=== PATIENT | male | born 1975 | race African-American/Black ===

== ENCOUNTER 2016-06-11 06:01 | Emergency (ER) ==
[2016-06-11] MEDS ORDERED: ASPIRIN PO STA (06:26)
--- NOTE | 2016-06-11 06:29 | EKG Report ---
Test Performed on : 06/11/2016 06:14:23 AM Test Reason : hypertension Blood Pressure : / mmHG Vent. Rate : 095 BPM Atrial Rate : 095 BPM P-R Int : 126 ms QRS Dur : 092 ms QT Int : 352 ms P-R-T Axes : 064 026 041 degrees QTc Int : 442 ms Normal sinus rhythm. Nonspecific ST and T wave abnormality Abnormal ECG When compared with ECG of 26-SEP-2014 07:25, No significant change was found Unconfirmed Result
[2016-06-11 06:40] LABS: MANUAL DIFF NEEDED? NO
[2016-06-11 06:56] LABS: BASO% 0.3 % (0.0-0.8); EOS# 0.19 X1000 (0.0-0.7); EOS% 2.7 % (0.0-10.0); HEMOGLOBIN 15.4 g/dL (14.0-18.0); IMM GRAN# 0.01 X1000 (0.0-0.04); IMM GRAN% 0.1 % (0.0-0.5); LYMPH# 1.56 X1000 (1.2-3.4); LYMPH% 22.1 % (20.5-51.1); MCH 27.3 PG (27-31); MCHC 34.2 g/dL (33-37); MCV 79.6 FL (81-99); MONO# 0.54 X1000 (0.11-0.59); MONO% 7.6 % (1.7-9.3); MPV 8.8 FL (7.4-10.4); NEUT% 67.2 % (42.2-75.2); PLT 241 X1000 (130-400); RBC 5.65 XMIL (4.7-6.1)
--- NOTE | 2016-06-11 06:59 | PROVIDER DOCUMENTATION ---
HPI-General Adult - General Chief Complaint: B/P Problems Stated Complaint: B/P PROB Time Seen by Provider: 06/11/16 06:24 Source: patient Allergies/Adverse Reactions: Patient Allergies Allergy/AdvReac Type Severity Reaction Status Date / Time No Known Allergies Allergy Verified 04/20/16 17:47 Home Medications: Home Medication List Medication Instructions Recorded Confirmed Last Taken Type Amlodipine [Norvasc] 10 mg PO DAILY 12/16/15 04/20/16 04/20/16 06:30 History Amoxicillin 875 mg PO Q8HR #30 tablet 06/11/16 Unknown Rx Meclizine [Antivert] 12.5 mg PO TID #20 tablet 06/11/16 Unknown Rx Tramadol [Ultram] 50 mg PO TID #30 tablet 06/11/16 Unknown Rx - History of Present Illness -Gen Adult Nature of Presenting Problems: feeling dizzi and litgh fair for copple days /no cp or cva sxs,,,pt claim bp up at times Pain Radiation: reports: no radiation Onset/Duration: reports: gradual, 2 days ago Timing: reports: intermittent, changing over time Context/Activities at Onset: reports: light activity Modifying Factors: improves with: movement Associated Symptoms: reports: anxiety, dizziness, sinus congestion/drainage. denies: back/neck pain, chest pain, diaphoresis, fever/chills, muscle aches, swelling/mass in abdomen, weakness, trouble walking Similar Symptoms Previously?: Yes Recently seen or treated by another doctor?: No - Diabetes Related Context Context: denies: low blood sugar, high blood sugar Review of Systems - Adult - REVIEW OF SYSTEMS - ADULT Constitutional: reports: see HPI All Other Systems: Reviewed and Negative Past History - Adult - PAST MEDICAL HISTORY-ADULT Review of Records: reports: Old Records Reviewed, Nursing Assessment Review, Medications Reviewed, Social history reviewed & non-contributory. Major Childhood Illnesses: reports: denies history Cardiovascular: reports: blood clots, CAD, HTN, heart valve problem, hyperlipidemia Respiratory: reports: denies history Gastrointestinal: reports: denies history, GERD Obstetrical/Gynecological: reports: denies history Genitourinary: reports: denies history Musculoskeletal: reports: denies history Neurological: reports: denies history Psychiatric: reports: denies history Endocrine/Immune: reports: denies history Other Conditions: reports: denies history - PRIOR SURGERIES/PROCEDURES Surgical/Procedure History: reports: cholecystectomy, cardiac stent, hernia repair - IMMUNIZATION STATUS Childhood Immunizations: See Nurse Assessment Flu Vaccine: See Nurse Assessment - FAMILY HISTORY Family History: reviewed, not pertinent - SOCIAL HISTORY Smoking: non-smoker Provider spent 3-5 mins advising pt. on dangers of tobacco.: Discussed manners to quit use, and f/u contacts for add'l counseling. Substance Use: none presently/history of abuse Alcohol Use Frequency: 1 or 2 times last year Living Situation: alone Physical Exam-General - PHYSICAL EXAM-ADULT Initial Vital Signs Reviewed: Yes - CONSTITUTIONAL General Appearance: appears well, alert, no apparent distress - EYES Eyes: PERRL/EOMI - HEAD, EARS, NOSE, MOUTH & THROAT HENMT: normocephalic/atraumatic, moist mucous membranes, normal ENT inspection - NECK Neck: non-tender, full range of motion, supple - RESPIRATORY Respiratory: chest non-tender, lungs clear, normal breath sounds, no pleuratic chest pain - CARDIOVASCULAR Cardiovascular: normal peripheral pulses, regular rate, rhythm, no edema - GASTROINTESTINAL (ABDOMEN) Abdominal Exam: normal bowel sounds, non tender, soft, no organomegaly - LYMPHATIC Lymphatic: no adenopathy - MUSCULOSKELETAL Back Exam: normal inspection, no CVA tenderness, no vertebral tenderness, CVA tenderness Extremity: normal range of motion, non-tender, normal gait - SKIN Integumentary: normal color, normal turgor - NEUROLOGIC 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 These instructions are being provided to you so you can have an understanding of how to care for yourself upon discharge. Upon discharge from the Emergency Department, you are responsible for making arrangements for follow-up care by a physician of your choice. Take all prescribed medications as directed. Return to the Emergency Department immediately for any new or worsening symptoms. You may call the Physician Referral phone number at [phone] to obtain a list of Physicians who are taking new patients. Prescriptions: Amoxicillin 875 mg PO Q8HR #30 tablet Meclizine [Antivert] 12.5 mg PO TID #20 tablet Tramadol [Ultram] 50 mg PO TID #30 tablet
[2016-06-11 07:29] LABS: AGAP 13; ALBUMIN 4.6 g/dL (3.5-5.0); ALKALINE PHOSPHATASE 55 U/L (32-122); BUN 13 mg/dL (8-22); CALCIUM 9.2 mg/dL (8.8-10.2); CHLORIDE 102 mmol/L (98-107); COSMO 275; GOT 44 U/L (10-34); GPT 57 U/L (10-44); MAGNESIUM 2.2 mg/dL (1.5-2.7); POTASSIUM 3.6 mmol/L (3.5-5.1); SODIUM 137 mmol/L (136-145); TCO2 22 mmol/L (25-35); TOTAL PROTEIN 7.5 g/dL (6.3-8.3)
[2016-06-11 07:33] LABS: CK PROFILE 469 U/L (24-204)
--- NOTE | 2016-06-11 07:36 | Diag Imaging Result Document ---
PROCEDURE NAME: HEAD W/O CONTRAST - 06/11/2016 CT BRAIN WITHOUT CONTRAST. DOSE REDUCTION PROTOCOL: FINDINGS: No parenchymal hemorrhage. No epidural or subdural hematoma. No subarachnoid hemorrhage. No mass identified on this noncontrasted exam. No hydrocephalus. No sinus opacification although there is prominent mucus in the right sphenoid sinus. IMPRESSION: 1. No hemorrhage. 2. Right sphenoid sinusitis. A preliminary report was given at 7:13 a.m.
[2016-06-11] MEDS ORDERED: NS 500 ML IV ONE (07:38)
--- NOTE | 2016-06-11 08:19 | Diag Imaging Result Document ---
PROCEDURE NAME: CHEST-2 VIEWS - 06/11/2016 FRONTAL AND LATERAL CHEST, TWO VIEWS: COMPARISON: 04/20/2016. FINDINGS: The lungs are well expanded. The heart is not enlarged. The vessels are not distended. No pneumonia. No pleural effusions. No free air beneath the diaphragm. IMPRESSION: No acute abnormality.
[2016-06-11 08:22] VITALS: BP 128/88
[2016-06-11 08:56] LABS: CK-MB 4.59 ng/mL (0.0-5.0)
--- NOTE | 2016-06-11 09:06 | ED EKG INTERP ---
EKG Interpretation - EKG Time of EKG reading by physician:: 06:14 EKG Read and Signed by:: Lito Danielle EKG Interpretation (*Must complete 3 of following elements*): Abnormal Rate: 95 Rhythm: nsr [place]: normal QRS: normal ST Wave: non-specific ST changes Attestation - Scribe Verification/Attestation Scribe:: Kassy Mariscal Acting as Scribe for:: Lito Danielle Scribe documention review:: This chart was documented by a scribe and accurately reflects the service the provider performed and the decisions made by the provider.
== END 2016-06-11 08:21 | disposition home or self-care (01) ==
LOC: P.ED 06:01
DX: J32.9 Chronic sinusitis, unspecified (principal); R42 Dizziness and giddiness; R09.81 Nasal congestion; Z86.718 Personal history of other venous thrombosis and embolism; I25.10 Atherosclerotic heart disease of native coronary artery without angina pectoris; I10 Essential (primary) hypertension; E78.5 Hyperlipidemia, unspecified; K21.9 Gastro-esophageal reflux disease without esophagitis; Z95.5 Presence of coronary angioplasty implant and graft; R94.31 Abnormal electrocardiogram [ECG] [EKG]; Z79.899 Other long term (current) drug therapy
CPT/HCPCS: 70450; 71020; 80053; 82550; 82553; 83735; 83880; 84484; 85025; 85379; 93005; J7040

== ENCOUNTER 2018-06-10 20:55 | Observation (INO) ==
[2018-06-10] MEDS ORDERED: ATIVAN IV ONE (21:33)
[2018-06-10] MEDS ORDERED: M.V.I.-12 10 ML, FOLIC ACID 1 MG, MAGNESIUM SULFATE 1 GM, THIAMINE 100 MG in NS 1,000 ML IV ONE (21:33)
[2018-06-10] MEDS ORDERED: PROTONIX IV ONE (21:41)
[2018-06-10] MEDS ORDERED: SODIUM CHLORIDE 0.9% INJ ONE (21:41)
[2018-06-10] MEDS ORDERED: ASPIRIN PO ONE (21:48)
[2018-06-10 21:54] LABS: BASO# 0.02 X1000 (0.0-0.2); BASO% 0.2 % (0.0-0.8); EOS# 0.05 X1000 (0.0-0.7); EOS% 0.6 % (0.0-10.0); HEMATOCRIT 48.4 % (42.0-52.0); HEMOGLOBIN 16.6 g/dL (14.0-18.0); IMM GRAN# 0.02 X1000 (0.0-0.04); IMM GRAN% 0.2 % (0.0-0.5); LYMPH# 1.35 X1000 (1.2-3.4); LYMPH% 16.3 % (20.5-51.1); MCH 27.6 PG (27-31); MCHC 34.3 g/dL (33-37); MCV 80.5 FL (81-99); MONO# 0.57 X1000 (0.11-0.59); MONO% 6.9 % (1.7-9.3); NEUT# 6.28 X1000 (1.4-6.5); NEUT% 75.8 % (42.2-75.2); PLT 291 X1000 (130-400); RBC 6.01 XMIL (4.7-6.1); RDW 12.1 % (11.5-14.5); WBC 8.29 X1000 (4.8-10.8)
[2018-06-10 22:03] LABS: URINE SOURCE CLEAN CATCH
[2018-06-10 22:15] LABS: AGAP 18; ALB/GLOB RATIO 1.4; ALBUMIN 4.8 g/dL (3.5-5.0); ALKALINE PHOSPHATASE 78 U/L (32-122); BUN 12 mg/dL (8-22); CALCIUM 9.5 mg/dL (8.8-10.2); CHLORIDE 100 mmol/L (98-107); COSMO 279; CREATININE 0.9 mg/dL (0.7-1.2); ESTIMATED GFR > 60; GLUCOSE 94 mg/dL (70-104); GOT 59 U/L (10-34); GPT 69 U/L (10-44); POTASSIUM 3.9 mmol/L (3.5-5.1); SODIUM 140 mmol/L (136-145); TCO2 22 mmol/L (25-35); TOTAL BILIRUBIN 0.27 mg/dL (0.20-1.00); TOTAL PROTEIN 8.2 g/dL (6.3-8.3)
[2018-06-10 22:37] LABS: BILIRUBIN URINE NEGATIVE (NEGATIVE); BLOOD URINE SMALL (NEGATIVE); COLOR YELLOW; GLUCOSE URINE NEGATIVE (NEGATIVE); KETONE URINE NEGATIVE (NEGATIVE); LEUKOCYTES URINE NEGATIVE (NEGATIVE); NITRITE URINE NEGATIVE (NEGATIVE); PROTEIN URINE 50 mg/dL (NEGATIVE); SP GRAVITY URINE 1.016; TURBIDITY URINE CLEAR (CLEAR); UR EPITHELIAL CELLS <10 /HPF (<10); URINE BACTERIA NEGATIVE /HPF; URINE RBC <10 /HPF (<10); URINE WBC <10 /HPF (<10); UROBILINOGEN URINE NORMAL (NORMAL)
[2018-06-10 22:47] LABS: URINE CASTS GRANULAR PRESENT; URINE CRYSTALS NONE SEEN; URINE SMALL ROUND CELLS NONE SEEN; URINE YEAST NONE SEEN
[2018-06-10 23:54] LABS: UR AMPHETAMINES QUAL NONE DETECTED (NONE DETECT); UR BARBITUATES QUAL NONE DETECTED (NONE DETECT); UR BENZODIAZEPIN QUAL NONE DETECTED (NONE DETECT); UR CANNABINOIDS QUAL NONE DETECTED (NONE DETECT); UR COCAINE QUAL NONE DETECTED (NONE DETECT); UR METHADONE QUAL NONE DETECTED (NONE DETECT); UR OPIATES QUAL NONE DETECTED (NONE DETECT); UR OXYCODONE QUAL NONE DETECTED (NONE DETECT); UR PCP QUAL NONE DETECTED (NONE DETECT)
[2018-06-10 23:58] LABS: INR 0.88; PROTIME 12.6 Seconds (11.0-16.0)
--- NOTE | 2018-06-11 01:05 | PROVIDER DOCUMENTATION ---
This chart was entered by Yany Bal Scribe, acting as scribe for Renny Zhao MD. HPI-General Adult - General Chief Complaint: Nose Bleed Stated Complaint: nose bleed Time Seen by Provider: 06/10/18 20:57 Source: patient Allergies/Adverse Reactions: Patient Allergies Allergy/AdvReac Type Severity Reaction Status Date / Time No Known Allergies Allergy Verified 06/10/18 21:16 Home Medications: Home Medication List Medication Instructions Recorded Confirmed Last Taken Type Amlodipine [Norvasc] 10 mg PO QAM 12/16/15 10/30/17 10/30/17 16:00 History Famotidine [Pepcid] 20 mg PO DAILY #20 tab 11/12/17 Unknown Rx Hydrocodone/APAP 7.5 mg/325 mg 1 ea PO Q6H PRN PRN #10 tab 11/12/17 Unknown Rx [[place]-7.5] Ibuprofen [Motrin] 800 mg PO Q8H PRN PRN #20 tab 11/12/17 Unknown Rx - History of Present Illness -Gen Adult Nature of Presenting Problems: 42 yom c/o tingling cp that is mild in er in comparison to earlier today and nosebleed on rt nare that stopped when pressure was applied. pt arrived via ems. pt states he has financial problems and drinks 15 beers/a day. pt has hx of heart problems, htn, and gerd. Location of Pain/Injury: reports: chest Review of Systems - Adult - REVIEW OF SYSTEMS - ADULT Constitutional: reports: no symptoms reported Eyes: reports: no symptoms reported Ears, Nose, Mouth & Throat: reports: see HPI, nose pain (nosbleed rt nare). denies: ear pain, sinus problem, loose teeth Cardiovascular: reports: see HPI, chest pain. denies: orthopnea, palpitations, poor circulation, syncope Respiratory: reports: no symptoms reported Gastrointestinal: reports: no symptoms reported Genitourinary: reports: no symptoms reported Musculoskeletal: reports: no symptoms reported Integumentary: reports: no symptoms reported Neurological: reports: no symptoms reported Psychiatric: reports: no symptoms reported Endocrine: reports: no symptoms reported Hematologic/Lymphatic: reports: no symptoms reported Allergic/Immunologic: reports: no symptoms reported All Other Systems: Reviewed and Negative Past History - Adult - PAST MEDICAL HISTORY-ADULT Review of Records: reports: Old Records Reviewed, Nursing Assessment Review, Medications Reviewed, Social history reviewed & non-contributory. Major Childhood Illnesses: reports: denies history Cardiovascular: reports: blood clots, CAD, HTN, heart valve problem, hyperlipidemia Respiratory: reports: denies history Gastrointestinal: reports: GERD Obstetrical/Gynecological: reports: denies history Genitourinary: reports: denies history Musculoskeletal: reports: denies history Neurological: reports: denies history Psychiatric: reports: denies history Endocrine/Immune: reports: denies history Other Conditions: reports: denies history - PRIOR SURGERIES/PROCEDURES Surgical/Procedure History: reports: cholecystectomy, cardiac stent, hernia repair - IMMUNIZATION STATUS Childhood Immunizations: See Nurse Assessment Flu Vaccine: See Nurse Assessment - FAMILY HISTORY Family History: reviewed, not pertinent - SOCIAL HISTORY Smoking: cigarettes, less than 1 pack/day Provider spent 3-5 mins advising pt. on dangers of tobacco.: Discussed manners to quit use, and f/u contacts for add'l counseling. Substance Use: alcohol Alcohol Use Frequency: every day Physical Exam-General - PHYSICAL EXAM-ADULT Initial Vital Signs Reviewed: Yes - CONSTITUTIONAL General Appearance: alert, no apparent distress, anxious. negative: slow to respond, obtunded, combative - EYES Eyes: PERRL/EOMI - HEAD, EARS, NOSE, MOUTH & THROAT HENMT: normocephalic/atraumatic, moist mucous membranes - NECK Neck: non-tender, full range of motion, supple, normal inspection - RESPIRATORY Respiratory: chest non-tender, lungs clear, normal breath sounds - CARDIOVASCULAR Cardiovascular: normal peripheral pulses, tachycardia. 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, grossly normal, no motor/sensory deficits - PSYCHIATRIC Psych/Mental Status: normal mood/affect, normal thought content, normal thought process, oriented x 3 Progress - PLAN OF CARE/RESULTS Progress/Plan/Lab Results: Vital Signs - 8 hr 06/10/18 21:12 Temperature 98.8 F Pulse Rate 109 H Respiratory Rate 24 Blood Pressure 143/102 O2 Sat by Pulse Oximetry 96 Orders Category Date Time Status CBC WITH ELECTRONIC DIFF [HEME] Stat Lab 06/10/18 21:32 Uncollected CMP [COMPREHENSIVE METABOLIC PANEL] [CHEM] Stat Lab 06/10/18 21:32 Uncollected EKG [EKG] Stat Ther 06/10/18 21:02 Ordered Result Diagrams: 06/10/18 21:22 06/10/18 21:22 - EKG 1 Time of EKG reading by physician:: 21:08 EKG Read and Signed by:: Renny Zhao EKG Interpretation (*Must complete 3 of following elements*): Abnormal Rate: 108 (anterior infarct age undetermined ) Rhythm: ST [place]: normal QRS: normal ID Interval: normal ST Wave: non-specific ST changes Prior EKG Comparison: unchanged from prior 2 Time of EKG reading by physician:: 00:31 EKG Read and Signed by:: Renny Zhao EKG Interpretation (*Must complete 3 of following elements*): Normal Rate: 100 Rhythm: NSR [place]: normal QRS: normal ID Interval: normal Prior EKG Comparison: changes noted - CONSULTS/PCP/HOSPITALIST Notification #1 *Consult/PCP/Hospitalist*: Dr. Luciano Time Discussed: 23:28 Consult Disposition: Admit (Hx, PE and patient care discussed, accepted.) Departure - Departure Date of Disposition Decision: 06/10/18 Time of Disposition Decision: 23:27 DIAGNOSIS: Alcohol withdrawal Qualifiers: Complication of substance-induced condition: uncomplicated Qualified Code(s): F10.230 - Alcohol dependence with withdrawal, uncomplicated Chest pain Qualifiers: Chest pain type: other chest pain Qualified Code(s): R07.89 - Other chest pain; R07.8 - Other chest pain Disposition: ADMITTED INPATIENT 09 Certified Medical Emergency: Emergent Condition: Stable Referrals and Follow-Ups: Rajat King MD [Primary Care Provider] - - Critical Care Note This patient required my direct & personal management of CC.: No Attestation - Physician/ RONA Attestation Patient care was provided by Advanced Practice Provider:: No The physician spent face to face time with patient:: Yes Advanced Practice Provider documentation review:: Supervising physician onsite and consulted in the evaluation and care of this patient. The physician did have a face to face encounter with the patient. This chart was documented by the indicated scribe, (Yany Bal Scribe) and accurately reflects the services I performed and decisions made by me, Renny Horn MD, as attested by the provider's signature.
[2018-06-11 01:42] LABS: CK-MB 3.11 ng/mL (0.0-5.0)
[2018-06-11] MEDS ORDERED: ZOFRAN IV PRN (01:54)
[2018-06-11 02:42] LABS: CK INDEX 1.1 (0.0-2.5); CK-MB 3.86 ng/mL (0.0-5.0)
[2018-06-11] MEDS ORDERED: TYLENOL PO PRN (02:55)
--- NOTE | 2018-06-11 07:36 | HISTORY AND PHYSICAL ---
PRIMARY CARE PROVIDER: Dr. Rajat King. DATE AND TIME: 06/11/2018 at 0030. CHIEF COMPLAINT: Chest pain. HISTORY OF PRESENT ILLNESS: Mr. Ledbetter is a 42-year-old male who presented to the ER this evening with complaints of chest pain as well as a nosebleed. The patient reports that this evening just prior to his arrival he was having a nosebleed. The patient states he does have occasional nosebleeds. The patient states that shortly after his nosebleeds subsiding that he did have an episode of chest pain that lasted for just a few minutes. He reported that the chest pain was in his left chest, was squeezing in nature, and was nonradiating though he did have associated symptoms of some dizziness, lightheadedness and felt like his heart was racing. He denied any headache, visual disturbances, shortness of breath, nausea, vomiting, indigestion or diaphoresis. The patient states that he was sitting down and was at rest at the time the chest pain started. He states that since it has subsided, it has not started back. He did call an ambulance and had them bring him to the ER. According to the ER notes, it was noted that the patient's blood pressure was elevated according to EMS at 170s systolically over the 110s diastolically. He also was tachycardic as well with a heart rate in the 140s. He was given IV labetalol in route and since that time his blood pressure and heart rate have both improved. The patient's nosebleed and his chest pain as well as his symptoms he reported with his chest pain have all subsided at this time. The patient does have a previous history of having a cardiac stent placed at [facility] back in either 2014 or 2015. The patient states that since that time, he has not followed back up with a manual qa tester. He denies any tobacco use though does state that he does drink fairly regularly. The patient states that he usually does drink a couple beers a day though it looked as though in the ER physician's note that they documented that the patient reported to them that he had been having some financial problems and drinks up to 15 beers a day. Upon evaluation in the ER, the patient's initial vital signs were temperature 98.8 degrees, heart rate 109, respirations 24, blood pressure is 143/102, oxygen saturation was 96% on room air. While in the ER, though his CK was a little elevated at 342. His troponins have been negative. There does not appear to be any acute EKG changes at this time. The patient does report he has a history of having a left upper extremity DVT though his D-dimer was negative at this time. He does not have any swelling, erythema, warmth, tenderness or abnormalities noted to bilateral upper or lower extremities. He is denying any shortness of breath. Though given the patient's history we will admit him for further evaluation of his chest pain. REVIEW OF SYSTEMS: A 14 point review of systems was conducted with the patient. All were negative except for pertinent positives mentioned in above HPI. PAST MEDICAL HISTORY: 1. Coronary artery disease status post cardiac stent placement in 2014 or 2015 at [facility]. 2. Hypertension. 3. Hyperlipidemia. 4. Alcohol abuse. 5. History of a left upper extremity DVT. PAST SURGICAL HISTORY: 1. Cholecystectomy. 2. Right inguinal hernia repair. 3. Cardiac stent placement. 4. Dental surgery. SOCIAL HISTORY: The patient denies any tobacco or illicit drug use. He does report that he does drink beer usually on a daily basis. He only told me that he drinks up to a couple beers a day though it was noted in the ER physician's notes that he reportedly had drank up to 15 beers a day. FAMILY HISTORY: Positive for his father having a history of hypertension. Other than this the patient denies any other previous known past family medical history. ALLERGIES: Patient has no known allergies. HOME MEDICATIONS: 1. Aspirin 81 mg p.o. daily. 2. Amlodipine/benazepril 5/10 mg capsule 1 p.o. daily. DIAGNOSTIC DATA/LABORATORY RESULTS: White blood cell count is 8,290, hemoglobin 16.6, hematocrit 48.4, platelet count is 291,000. PT 12.6, INR is 0.88, PTT is 27, D-dimer 0.27. Sodium 140, potassium 3.9, chloride 100, serum bicarb is 22, BUN 12, creatinine 0.9 with a GFR greater than 60. Glucose 94, calcium 9.5, phosphorus 3.5, magnesium 2.2. Liver function tests within normal limits except for AST and ALT are slightly elevated. CK is 342 with a repeat of 309. CK index 1.1 with a repeat of 1. CK MB is 3.86 with a repeat of 3.11. Troponin the initial and repeat at this time have been less than 0.01. Urinalysis was obtained via clean catch, was positive for protein, small amount of blood, though was negative for glucose, ketones, nitrites, leukocytes white blood cells, or bacteria. Urine drug screen was negative. Serum alcohol is 42. EKG did show normal sinus rhythm at a rate of 100 with a QTc of 441. We are awaiting a chest x- ray at this time. PHYSICAL EXAMINATION: VITAL SIGNS: Temperature 97.8 degrees, heart rate 92, respirations 18, blood pressure is 146/83, oxygen saturation is 97% on room air. GENERAL: Mr. Ledbetter is a 42-year-old male who is resting in the ER stretcher. He was in no acute distress. He was awake, alert and able to answer questions appropriately. HEENT: Head is atraumatic, normocephalic. Pupils are equal, round, reactive to light, were 3 mm bilaterally and brisk. Oral mucosa is moist. Oropharynx is clear. NECK: Supple. Trachea midline. No carotid bruits noted upon auscultation bilaterally. CARDIOVASCULAR: Patient has normal S1, S2. No murmurs, gallops, rubs appreciated with a regular rate and rhythm. PULMONARY: Patient has symmetrical chest expansion bilaterally. Lung sounds are clear to auscultation in bilateral full gallo. ABDOMEN: Soft. Nontender, nondistended. Bowel sounds are present in all 4 quadrants. EXTREMITIES: No cyanosis, clubbing, or edema noted. Pulse, motor, and sensory is intact in all extremities. Radial pulses and pedal pulses are 2+ bilaterally. INTEGUMENTARY: The patient's skin color is normal for his race, is dry and intact. NEUROLOGICAL: Patient is alert and oriented x4. He is able to move all extremities. There does not appear to be any focal neurological deficits. ASSESSMENT AND PLAN: 1. Chest pain. For further evaluation of this, we will continue with a series of cardiac enzymes. We will do repeat EKG in the morning. We have also ordered an echocardiogram in the morning as well. The patient since his initial chest pain episode that lasted a few minutes prior to arrival, he has not had any further chest pain since that time. We will continue with daily aspirin as well as his regularly prescribed antihypertensive. We will do frequent vital signs. He will be on cardiac telemetry and we will place a consult with Dr. Hoang with Cardiology and await their evaluation and further recommendations for management. 2. Hypertension. We will continue his amlodipine/benazepril 5/10 mg capsule daily. 3. Epistaxis. The patient's epistaxis has stopped at this time. He has not had any further problems with this since his arrival to the hospital. The patient's blood pressure was noted by the EMS service to be elevated in the 170s systolically. This may be related to his high blood pressure. The patient states that he does occasionally have nosebleeds. We will continue to follow. 4. Alcohol abuse. The patient states that he does have frequent alcohol use. He reports that sometimes this could be daily or every other day up to a couple beers a day. Though it was noted in the ER physician notes that he had reportedly informed them that he would drink up to 15 beers a day. At this time the patient is not showing any alcohol withdrawal symptoms. He denies having any withdrawal type symptoms in the past when he has gone for long periods of time without drinking alcohol. We will continue to monitor him closely for any alcohol withdrawal symptoms. The patient has been placed on the medical floor with telemetry. He will have vital signs q.4 hours. We will do strict intake and output. We will repeat a BMP, magnesium and cardiac enzymes later on this morning. Further orders and recommendations pending hospital course, diagnostic studies, and physician evaluation. Dictated by MARIA LUZ Campbell for David Luciano MD I have performed a face to face diagnostic evaluation. Labs/ Xrays- reviewed. Exam- Chest - clear, CV- regular. A/P- Chest pain- Admit ,cardiac work up, Cardiology consult. Dr. Luciano cc: David Luciano MD [facility]
[2018-06-11 10:01] LABS: AGAP 13; BUN 12 mg/dL (8-22); CALCIUM 9.6 mg/dL (8.8-10.2); CHLORIDE 101 mmol/L (98-107); COSMO 278; ESTIMATED GFR > 60; GLUCOSE 107 mg/dL (70-104); MAGNESIUM 2.3 mg/dL (1.5-2.7); POTASSIUM 3.6 mmol/L (3.5-5.1); SODIUM 139 mmol/L (136-145); TCO2 25 mmol/L (25-35)
[2018-06-11] MEDS: ASPIRIN PO SCH (10:03)
[2018-06-11] MEDS: LOTREL 5/10 MG PO SCH (10:03)
[2018-06-11 10:36] LABS: CK PROFILE 332 U/L (24-204)
[2018-06-11 10:53] LABS: CK INDEX 0.9 (0.0-2.5); CK-MB 2.83 ng/mL (0.0-5.0)
--- NOTE | 2018-06-11 11:57 | Diag Imaging Result Doc PS360 ---
EXAM: CHEST-PORTABLE INDICATION: Chest Pain TECHNIQUE: One view COMPARISON: 06/11/2016 FINDINGS: The lungs are grossly clear. There is no discrete pleural fluid collection or pneumothorax. The cardiomediastinal silhouette and central vasculature are grossly unremarkable. IMPRESSION: No evidence of acute pathology by plain radiograph. Electronically signed by Marko Bal 06/11/2018 11:55 AM
[2018-06-11 17:44] LABS: CK INDEX 0.8 (0.0-2.5); CK-MB 2.52 ng/mL (0.0-5.0)
--- NOTE | 2018-06-11 18:42 | CARDIOLOGY CONSULTATION ---
DATE: 06/11/2018 CONSULTATION REQUESTED BY: Hospitalist Service. REASON: Chest pain. HISTORY: Mr. Ledbetter is a 42-year-old black gentleman who was at work. He works at the [employer] in the [place] area. At about 8:30 at night he started noticing nose bleed. This is not a new occurrence to him because he has been to the ER on several occasions throughout the course of the years with epistaxis. He has to take aspirin because of history of a stent. At any rate, while he was at work he tried to stop the bleeding. However it would not stop and then he started feeling discomfort in the chest of moderate severity lasted about 10 to 15 minutes. There was some question of radiation to the left shoulder. Eventually the chest pain gradually subsided and the nosebleed practically stopped by the time the ambulance got to pick him up and brought him to the ER. In the ER they immediately picked up on the chest pain and they started all the usual cardiac workup including 3 sets of troponins which have been negative. First one at 9 p.m., last one at 9 a.m. this morning. CPKs were slightly elevated which is not unexpected given the fact that this patient does physical work. The patient basically has not had any more complaints since his checking into the ER which was about 9:30 p.m. last night. His electrocardiogram has come back normal. The 1st EKG was done at 9:08 p.m. and it basically does not show any major abnormality. The other 2 EKGs the last 1 done this morning at 6:17 in the morning shows no abnormalities. His chest x-ray showed no pathology. PAST HISTORY: Positive for coronary heart disease. Back in 2014 he presented with an acute coronary syndrome and he underwent heart catheterization back on 09/07/2014. A moderate to severe stenosis of the LAD was identified and he was referred to [place]. They performed stenting to LAD on 09/08/14. Subsequently, he developed some chest pain after the stent and he had to be taken back to the catheterization lab and angiography showed that the stent was patent with sluggish flow in distal LAD. He has not had any further problems since then. He does have history of hypertension, hyperlipidemia. There is a question of upper extremity deep venous thrombosis. SURGICAL HISTORY: Positive for inguinal hernia repair and gallbladder surgery. SOCIAL HISTORY: He lives with a girlfriend. He has 2 children ages 22 and 9. He has 1 grand child. He has been working at [employer] for a while. FAMILY HISTORY: Father has hypertension. He has 2 brothers who are healthy. Mother is healthy. He follows with Dr. Rajat King and the last time he saw him has been quite a while. HOME MEDICATIONS: Include amlodipine, benazepril and aspirin. REVIEW OF SYSTEMS: Basically he has no complaints. He is working 2nd shift from 6 p.m. until 6 a.m. at [employer]. He has no limitations to perform his usual activities. Multiple systems were checked nothing positive. PHYSICAL EXAMINATION: Vital signs: Blood pressure 145/90, temperature 98 degrees, pulse 100, respirations 20. He is awake, alert, in no distress. HEENT: Unremarkable. Chest: Clear to auscultation, percussion. Heart: Sounds regular and rhythmic. No gallop or murmur. Abdomen: Nontender. Extremities: Showed no edema. Neurological: Nonfocal. Moves 4 extremities. BLOOD WORK: They have not checked lipids unfortunately. Going to put that order. His chemistry other than some elevation of LFTs is unremarkable. IMPRESSION: 1. Patient presenting with epistaxis. This is a recurrent issue for him. 2. History of coronary heart disease. Previous stent to left anterior descending. 3. Chest pain quite atypical. No evidence of ECG nor troponin abnormalities. 4. Hypertension. 5. Medical noncompliance. RECOMMENDATION: At this time I will ask him to add a lipid panel to his blood work. If he is chest pain-free he can go home tomorrow. I would suggest to make referral to ENT specialist because of the recurrent epistaxis that have warranted several visits to the ER. Otherwise I do not have any further recommendations. He needs to make an appointment to see Dr. Toro, who has been his health management consultant in the past. Please call me if you have any questions or worries or concerns. cc: Jimenez Hoang MD [facility]
--- NOTE | 2018-06-11 19:45 | ECHO REPORT ---
ORDER DATE: 06/11/2018 INDICATION: A 42-year-old male with chest pain, previous stent. M-MODE MEASUREMENTS: Left ventricle end diastole: 3.5. Left ventricle end systole: 2.6. Posterior wall: 1.1. Interventricular septum: 1.1. Left atrium: 3.7. SUMMARY OF 2-DIMENSIONAL IMAGIN. Left ventricular function appears to be normal. EF 55-60%. Definity was added to optimize visualization of the cardiac chamber. No definite wall motion abnormality appears to be present. 2. The aortic valve is normal. Color flow mapping unremarkable. 3. The mitral valve is normal. Color flow mapping unremarkable. 4. Pulsed wave Doppler of mitral inflow shows reversal of the E/A ratio. 5. Tissue Doppler of septal and lateral mitral annulus averages 13 cm. There is no diastolic dysfunction. 6. The tricuspid valve is normal. Color flow mapping is unremarkable. 7. The pulmonic valve is normal. Comfortably unremarkable. 8. The tricuspid valve is unremarkable. There is no pulmonary hypertension. 9. There is no mass and no thrombus. 10.The right-sided chambers are unremarkable. SUMMARY: This study shows: 1. Echocardiographic study was difficult. Definity was added to optimize visualization of the endocardium. 2. Left ventricular function appears to be normal. 3. There is no diastolic dysfunction. 4. There is no pulmonary hypertension. 5. There is no evidence of any significant valvular abnormalities. cc: Jimenez Hoang MD MTDD
[2018-06-12 08:02] VITALS: BP 146/97
[2018-06-12] MEDS: ASPIRIN PO SCH (08:51)
[2018-06-12] MEDS: LOTREL 5/10 MG PO SCH (08:51)
--- NOTE | 2018-06-12 10:09 | CARDIOLOGY PROGRESS NOTE ---
DATE: 06/12/2018 CHIEF COMPLAINT: Chest pain, epistaxis. SUBJECTIVE: Mr. Ledbetter had an uneventful night. He is up and about. He has no more chest pains. laboratory monitor indicates no evidence of any arrhythmia. A 12-lead EKG this morning shows sinus rhythm, a question of anterior scar, which we know he has had a previous event in the LAD distribution. That has not changed. He has had a number of troponins checked overnight, a total of 4. His lipid panel today shows total cholesterol 187, triglycerides 227, HDL is 48, LDL is 106. OBJECTIVE: Vital signs: Blood pressure is 146/97, temperature 98 degrees, pulse 98, respirations 20. He is awake, alert and oriented. No distress. HEENT is unremarkable. Chest sounds clear to auscultation and percussion. Heart sounds regular and rhythmic. No gallop or murmur. His abdomen is nontender. No masses. No hepatomegaly. Extremities showed good pulses. No peripheral edema. Neurologic: Follows commands. Moves all 4 extremities. IMPRESSION: 1. The patient presented with chest pain that is rather atypical. 2. Epistaxis, recurrent. 3. History of severe coronary heart disease, previous acute coronary syndrome and a stent to the LAD back in 2014. 4. Hyperlipidemia. 5. Hypertension. 6. Medical noncompliance. RECOMMENDATIONS: At this point in time, I believe the patient is clinically stable. I would suggest to do 2 things: 1. Probably prescribe diltiazem a dose of 120 to 240 to optimize his heart rate and blood pressure. 2. I would suggest to put him on a statin medication, either Pravachol 40 or Lipitor 20 to optimize his LDL cholesterol and arrange for a followup with our office within the next month or two. He has been a patient of Dr. Toro. We will notify him and let the office arrange for a followup. cc: Jimenez Hoang MD
--- NOTE | 2018-06-13 08:05 | EKG Report ---
Test Performed on : 06/12/2018 08:07:35 AM Test Reason : chest pain Blood Pressure : / mmHG Vent. Rate : 094 BPM Atrial Rate : 094 BPM P-R Int : 130 ms QRS Dur : 096 ms QT Int : 366 ms P-R-T Axes : 062 028 023 degrees QTc Int : 457 ms Normal sinus rhythm. with sinus arrhythmia. Possible Anterior infarct , age undetermined Abnormal ECG When compared with ECG of 11-JUN-2018 06:17, (Unconfirmed) No significant change was found Unconfirmed Result
--- NOTE | 2018-06-13 08:10 | EKG Report ---
Test Performed on : 06/11/2018 06:17:16 AM Test Reason : chest pain Blood Pressure : / mmHG Vent. Rate : 089 BPM Atrial Rate : 089 BPM P-R Int : 134 ms QRS Dur : 100 ms QT Int : 368 ms P-R-T Axes : 058 028 031 degrees QTc Int : 447 ms Normal sinus rhythm. Normal ECG When compared with ECG of 11-JUN-2018 00:31, (Unconfirmed) No significant change was found Unconfirmed Result
--- NOTE | 2018-06-13 08:16 | EKG Report ---
Test Performed on : 06/11/2018 00:31:05 AM Test Reason : Chest Pain Blood Pressure : / mmHG Vent. Rate : 100 BPM Atrial Rate : 100 BPM P-R Int : 136 ms QRS Dur : 084 ms QT Int : 342 ms P-R-T Axes : 055 022 030 degrees QTc Int : 441 ms Normal sinus rhythm. Normal ECG When compared with ECG of 10-JUN-2018 21:08, (Unconfirmed) No significant change was found Unconfirmed Result
--- NOTE | 2018-06-13 08:16 | EKG Report ---
Test Performed on : 06/10/2018 9:08:07 PM Test Reason : hypertension Blood Pressure : / mmHG Vent. Rate : 108 BPM Atrial Rate : 108 BPM P-R Int : 136 ms QRS Dur : 084 ms QT Int : 322 ms P-R-T Axes : 056 016 031 degrees QTc Int : 431 ms Sinus tachycardia. Anterior infarct (cited on or before 12-NOV-2017) Abnormal ECG When compared with ECG of 12-NOV-2017 19:04, ST elevation now present in Lateral leads Nonspecific T wave abnormality, improved in Inferior leads Nonspecific T wave abnormality no longer evident in Lateral leads Unconfirmed Result
== END 2018-06-12 10:45 | disposition home or self-care (01) ==
LOC: SUPCPDRO → ED 20:55 → INTOOBSV 06-11 01:44 → 3N 06-11 01:44 → SUATTDRO 06-11 01:44
PROVIDERS: ATTEND Internal Medicine
CPT/HCPCS: 71010; 71045; 80048; 80053; 80061; 80101; 80301; 80307; 80320; 80324; 80345; 80346; 80353; 80358; 80361; 80365; 81001; 82055; 82550; 82553; 83721; 83735; 83992; 84100; 84484; 85025; 85379; 85610; 85730; 93005; 93306; 94761; 96365; 96375; 99285; A9270; C8929; C9113; G0431; G0434; G0479; G0480; G6040; J2060; J3411; J3475; J7030; Q9957; S0164

== ENCOUNTER 2018-12-30 22:35 | Inpatient (IN) ==
[2018-12-30 22:59] LABS: URINE SOURCE CLEAN CATCH
[2018-12-30 23:00] LABS: BILIRUBIN URINE NEGATIVE (NEGATIVE); BLOOD URINE SMALL (NEGATIVE); COLOR YELLOW; GLUCOSE URINE NEGATIVE (NEGATIVE); KETONE URINE NEGATIVE (NEGATIVE); LEUKOCYTES URINE NEGATIVE (NEGATIVE); NITRITE URINE NEGATIVE (NEGATIVE); PH URINE 5.5; PROTEIN URINE TRACE mg/dL (NEGATIVE); SP GRAVITY URINE 1.014; TURBIDITY URINE CLEAR (CLEAR); UROBILINOGEN URINE NORMAL (NORMAL)
[2018-12-30 23:12] LABS: UR EPITHELIAL CELLS <10 /HPF (<10); URINE BACTERIA NEGATIVE /HPF; URINE RBC <10 /HPF (<10); URINE WBC <10 /HPF (<10)
[2018-12-30] MEDS ORDERED: MORPHINE IV ONE (23:12)
[2018-12-30] MEDS ORDERED: NS 1,000 ML IV ONE (23:12)
--- NOTE | 2018-12-30 23:20 | PROVIDER DOCUMENTATION ---
HPI-Abdominal Pain/GI Problem - General Chief Complaint: Abdominal Pain Stated Complaint: ABD PAIN Time Seen by Provider: 12/30/18 22:43 Source: patient Allergies/Adverse Reactions: Patient Allergies Allergy/AdvReac Type Severity Reaction Status Date / Time No Known Allergies Allergy Verified 12/30/18 23:50 Home Medications: Home Medication List Medication Instructions Recorded Confirmed Last Taken Type Bisoprolol/Hctz [Ziac 5/6.25 mg] 1 tab PO DAILY 12/30/18 12/30/18 12/30/18 History - History of Present Illness-ABD Nature of Presenting Problems: 43 YO M pmh for HTN presents with c/o abdominal pain since last night at 9 pm. associated nausea and fever but no vomiting. 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 pt states he drinks 12 beers daily. Abdominal Pain Onset Location: reports: LUQ, LLQ Pain Radiation: reports: no radiation Quality of Pain: reports: aching, pressure, sharp Severity in ED: reports: moderate Onset/Duration: reports: 24 hours ago Timing: reports: still present, intermittent Activities at Onset: reports: none Exposure to sick contacts?: No Modifying Factors: improves with: nothing Associated Symptoms: reports: nausea. denies: seizure, shortness of breath, vomiting, weakness Last BM: this afternoon Dark Stools Present?: reports: none noticed Review of Systems - Adult - REVIEW OF SYSTEMS - ADULT Constitutional: reports: fever. denies: chills Eyes: reports: no symptoms reported Ears, Nose, Mouth & Throat: reports: no symptoms reported Cardiovascular: reports: no symptoms reported. denies: chest pain, edema Respiratory: denies: shortness of breath, wheezing Gastrointestinal: reports: see HPI, abdominal pain, nausea. denies: constipation, vomiting Genitourinary: reports: no symptoms reported Musculoskeletal: reports: no symptoms reported Integumentary: reports: no symptoms reported Neurological: reports: no symptoms reported Hematologic/Lymphatic: reports: no symptoms reported Past History - Adult - PAST MEDICAL HISTORY-ADULT Review of Records: reports: Old Records Reviewed Major Childhood Illnesses: reports: denies history Cardiovascular: reports: HTN, hyperlipidemia Respiratory: reports: denies history Gastrointestinal: reports: denies history Obstetrical/Gynecological: reports: denies history Genitourinary: reports: denies history Musculoskeletal: reports: denies history Neurological: reports: denies history Psychiatric: reports: denies history Endocrine/Immune: reports: denies history Other Conditions: reports: denies history - PRIOR SURGERIES/PROCEDURES Surgical/Procedure History: reports: cholecystectomy, cardiac stent, hernia repair - IMMUNIZATION STATUS Childhood Immunizations: See Nurse Assessment Flu Vaccine: See Nurse Assessment - FAMILY HISTORY Family History: reviewed, not pertinent - SOCIAL HISTORY Smoking: denies Substance Use: alcohol Alcohol Use Frequency: every day Number of drinks per typical drinking period:: 11-15 drinks Living Situation: family Physical Exam-General - PHYSICAL EXAM-ADULT Initial Vital Signs Reviewed: Yes - CONSTITUTIONAL General Appearance: alert, mild distress (from pain) - EYES Eyes: PERRL/EOMI - HEAD, EARS, NOSE, MOUTH & THROAT HENMT: normocephalic/atraumatic, moist mucous membranes - NECK Neck: full range of motion - RESPIRATORY Respiratory: lungs clear, normal breath sounds, no respiratory distress - CARDIOVASCULAR Cardiovascular: no JVD, tachycardia - GASTROINTESTINAL (ABDOMEN) Abdominal Exam: soft, guarding, tenderness. negative: distended, hernia, mass - MUSCULOSKELETAL Back Exam: no CVA tenderness Extremity: normal range of motion, normal gait - SKIN Integumentary: normal color, normal turgor, warm/dry. negative: jaundice - NEUROLOGIC Neurologic: grossly normal - PSYCHIATRIC Psych/Mental Status: normal mood/affect, oriented x 3 Progress - PLAN OF CARE/RESULTS Progress/Plan/Lab Results: Vital Signs - 8 hr 12/30/18 22:51 Temperature 99.3 F Pulse Rate 105 H Respiratory Rate 18 Blood Pressure 157/98 O2 Sat by Pulse Oximetry 97 Laboratory Results - last 24 hr 12/30/18 22:51 Urine Source CLEAN CATCH Urine Color YELLOW Urine Turbidity CLEAR Urine pH 5.5 Ur Specific [place] 1.014 Urine Protein TRACE A Ur Glucose (Stick) NEGATIVE Ur Ketones (Stick) NEGATIVE Urine Blood SMALL A Urine Nitrite NEGATIVE Urine Bilirubin NEGATIVE Urobilinogen Dipstick NORMAL Urine Leukocytes NEGATIVE Urine WBC (Auto) <10 Urine RBC (Auto) <10 U Epithel Cells (Auto) <10 Urine Bacteria (Auto) NEGATIVE Orders Category Date Time Status NPO Diet 12/30/18 22:[address] ABDOMEN/PELVIS W/O CONTRAST [CT] Stat Exams 12/30/18 23:11 Ordered CBC WITH DIFF [HEME] Stat Lab 12/30/18 22:54 Uncollected COMPREHENSIVE METABOLIC PANEL [CHEM] Stat Lab 12/30/18 22:54 Uncollected LIPASE [CHEM] Stat Lab 12/30/18 22:54 Uncollected URINALYSIS [URINALYSIS] Stat Lab 12/30/18 22:51 Completed 0.9% Sodium Chloride Inj [Ns] 1,000 ml Med 12/30/18 23:12 Active IV 999 mls/hr Morphine Med 12/30/18 23:12 Discontinued 4 mg IV NOW ONE Abd Pain/OB <20 weeks Stat Oth 12/30/18 22:54 Ordered Result Diagrams: 12/31/18 00:08 12/31/18 00:08 - CT/MRI 1 CT Study: Abdomen, Pelvis Impression: See EMR Report (acute pancreatitis involving the tail of the pancreas) - CONSULTS/PCP/HOSPITALIST Notification #1 *Consult/PCP/Hospitalist*: Dr. Luciano Time Discussed: 01:14 Consult Disposition: Will see in ED Departure - Departure Date of Disposition Decision: 12/31/18 Time of Disposition Decision: 00:28 DIAGNOSIS: Pancreatitis Disposition: ADMITTED INPATIENT 09 Certified Medical Emergency: Emergent Condition: Stable Referrals and Follow-Ups: Rajat King MD [Primary Care Provider] - - Critical Care Note This patient required my direct & personal management of CC.: No Attestation - Physician/ RONA Attestation The physician spent face to face time with patient:: Yes Advanced Practice Provider documentation review:: Supervising physician onsite and consulted in the evaluation and care of this patient. The physician did have a face to face encounter with the patient.
[2018-12-31] MEDS ORDERED: NS 1,000 ML IV ONE (00:15)
[2018-12-31] MEDS ORDERED: DILAUDID IV ONE (00:21)
[2018-12-31 00:22] LABS: BASO# 0.02 X1000 (0.0-0.2); BASO% 0.2 % (0.0-0.8); EOS# 0.05 X1000 (0.0-0.7); EOS% 0.4 % (0.0-10.0); HEMOGLOBIN 16.2 g/dL (14.0-18.0); IMM GRAN# 0.03 X1000 (0.0-0.04); IMM GRAN% 0.2 % (0.0-0.5); LYMPH# 1.99 X1000 (1.2-3.4); LYMPH% 15.2 % (20.5-51.1); MCH 28.7 PG (27-31); MCHC 34.5 g/dL (33-37); MCV 83.3 FL (81-99); MONO% 7.7 % (1.7-9.3); MPV 9.1 FL (7.4-10.4); NEUT# 9.96 X1000 (1.4-6.5); NEUT% 76.3 % (42.2-75.2); PLT 213 X1000 (130-400); RBC 5.64 XMIL (4.7-6.1); RDW 13.6 % (11.5-14.5); WBC 13.05 X1000 (4.8-10.8)
[2018-12-31] MEDS ORDERED: ZOFRAN IV ONE (00:29)
[2018-12-31 01:08] LABS: AGAP 17; ALB/GLOB RATIO 1.1; ALBUMIN 4.3 g/dL (3.5-5.0); ALKALINE PHOSPHATASE 67 U/L (32-122); BUN 11 mg/dL (8-22); CALCIUM 8.8 mg/dL (8.8-10.2); CHLORIDE 98 mmol/L (98-107); COSMO 269; CREATININE 1.1 mg/dL (0.7-1.2); ESTIMATED GFR > 60; GLUCOSE 83 mg/dL (70-104); GOT 147 U/L (10-34); GPT 67 U/L (10-44); LIPASE 41 U/L (13-60); POTASSIUM 5.7 mmol/L (3.5-5.1); SODIUM 135 mmol/L (136-145); TCO2 20 mmol/L (25-35); TOTAL BILIRUBIN 1.06 mg/dL (0.20-1.00); TOTAL PROTEIN 8.1 g/dL (6.3-8.3)
--- NOTE | 2018-12-31 02:47 | HISTORY AND PHYSICAL ---
PRIMARY CARE PHYSICIAN: Dr. King. CHIEF COMPLAINT: Abdominal pain. HISTORY OF PRESENTING ILLNESS: A 43-year-old male with a history of alcohol abuse, hypertension, coronary artery disease, who had presented to emergency department with several days history of having worsening abdominal pain. Patient states it was cramping and he was nauseated. He was evaluated in the emergency department. He had imaging done which did show pancreatitis, subsequently he will require admission for further management. At the time of my examination, patient denied any headache, fever, chills, hemoptysis, melena or any weight changes, but complained of abdominal pain, mostly in his epigastric region. PAST MEDICAL HISTORY: Includes hypertension, coronary artery disease. PAST SURGICAL HISTORY: Coronary stent, cholecystectomy. ALLERGIES: No known drug allergies. CURRENT MEDICATIONS: Include Ziac 5/6.25 mg p.o. SOCIAL HISTORY: He denies any history of smoking. Admits to alcohol use, mostly beers every night, about 8 to 10. Denies any illicit drug use. FAMILY HISTORY: No history of coronary disease. REVIEW OF SYSTEMS: Fourteen point review of systems is as in HPI. Other systems negative. PHYSICAL EXAMINATION: GENERAL: Cooperative, friendly male. He is resting comfortably now. VITAL SIGNS: Temperature 99.3 degrees, pulse 105, respiration 18, blood pressure 157/98. HEENT: Atraumatic, normocephalic. Extraocular movements intact. PERRLA. NECK: Supple. CHEST: Clear to auscultation. CARDIOVASCULAR: Regular rate and rhythm. ABDOMEN: Soft, diffuse tenderness. EXTREMITIES: No edema. NEUROLOGIC: He is awake, alert, oriented x3. GENITOURINARY: No bladder distention. SKIN: Warm. LABORATORIES AND STUDIES: Sodium 135, potassium 5.7, chloride 98, CO2 is 20, BUN is 11, creatinine is 1.1. Glucose 83. CT of the abdomen and pelvis shows pancreatitis. WBCs 13.05, hemoglobin 16.2, hematocrit 47.0, platelets 213,000. ASSESSMENT: A 43-year-old male with a history of hypertension, coronary disease, who had presented to the emergency department with several days history of having worsening abdominal pain. He was evaluated in the emergency department. He had a CT scan done which did show pancreatitis, subsequently he will require admission for further management 1. Alcoholic pancreatitis. 2. Alcohol abuse. 3. Hypertension. PLAN: 1. We will admit patient to medical floor with telemetry. 2. We will keep patient NPO. Continue with IV fluids and other supportive treatment. 3. Give patient a banana bag. 4. Counseled patient on alcohol cessation. 5. Put patient on DVT prophylaxis with SCDs. 6. We will continue follow and reassess. Make further recommendation based on clinical course. cc: David Luciano MD
[2018-12-31] MEDS ORDERED: NS 1,000 ML IV SCH (03:13)
[2018-12-31] MEDS ORDERED: M.V.I.-12 10 ML, FOLIC ACID 1 MG, MAGNESIUM SULFATE 1 GM, THIAMINE 100 MG in NS 1,000 ML IV ONE (03:13)
[2018-12-31] MEDS ORDERED: ZOFRAN IV PRN (03:13)
[2018-12-31] MEDS: MORPHINE IV PRN ×2 (03:42→09:35)
--- NOTE | 2018-12-31 08:49 | Diag Imaging Result Doc PS360 ---
EXAM: CT ABDOMEN/PELVIS W/O CONTRAST INDICATION: abd pain, left sided TECHNIQUE: This exam was performed using automated exposure control, adjustment of mA or kV according to patient size, and/or use of iterative reconstruction technique. COMPARISON: None. FINDINGS: There has been a prior cholecystectomy. No significant biliary dilatation is appreciated. There is fairly severe hepatic steatosis. The spleen and adrenal glands are unremarkable. There is inflammatory stranding emanating from the tail of the pancreas consistent with acute pancreatitis. No pancreatic ductal dilatation is appreciated. No pseudocyst formation is appreciated. No other definite loculated fluid collection is appreciated given the limitations of an unenhanced study. The kidneys are unremarkable. The urinary bladder is partially distended and is grossly unremarkable, otherwise. The appendix is normal. The GI tract is essentially unremarkable, otherwise. No bowel wall thickening or bowel obstruction is appreciated. There is no evidence of acute osseous abnormality. IMPRESSION: 1.Acute pancreatitis involving the tail the pancreas as described. 2.Fairly advanced hepatic steatosis. Electronically signed by Marko Bal 12/31/2018 8:46 AM
[2018-12-31] MEDS ORDERED: ZIAC 5/6.25 MG PO SCH (09:00)
--- NOTE | 2018-12-31 11:45 | DISCHARGE SUMMARY ---
ADMISSION DATE: 12/31/2018 DISCHARGE DATE: 12/31/2018 HOSPITAL COURSE: He came in with abdominal pain consistent with his usual pancreatitis and some gastritis. This is a 43-year-old with history of alcohol abuse, hypertension, coronary artery disease, presented to the emergency room with several-day history of worsening abdominal pain. He had some crampiness and nausea. He was evaluated in the emergency room, showed pancreatitis, so held him n.p.o. His pain is doing much better. He was bothered with even liquids before. Able to advance him to a soft diet and he wanted to go home. His lipase was 41. His CT of the abdomen and pelvis showed acute pancreatitis involving the tail of pancreas, fairly advanced hepatic steatosis. So we will try to let him go home. I put him on Nexium 40 mg a day. Encouraged him to stay off of alcohol. cc: Miguelito Crane MD
--- NOTE | 2018-12-31 11:54 | PROGRESS NOTE ---
DATE: 12/31/2018 SUBJECTIVE: This is a 43-year-old who came in with abdominal pain. He has a history of alcohol abuse, hypertension, coronary artery disease, presented to the emergency department with a several- day history of worsening abdominal pain, cramping, nauseated. PAST MEDICAL HISTORY: Hypertension, coronary artery disease. PAST SURGERY HISTORY: Coronary stent and cholecystectomy. OBJECTIVE: He is doing much better today. His abdomen is less tender and he wants to go home. We will try him on a soft diet. Vital signs, temperature 98 degrees, pulse 94, respirations 19, blood pressure 125/87. Pupils are equal round. Lungs are clear in all lung gallo. Cardiovascular exam, regular rate without murmur or S3. Abdomen is soft. Skin is warm and dry. ASSESSMENT AND PLAN: I will get him set up to go home if his pain is better. His lab, lipase and amylase seem to have improved. I am going to make sure he has a prescription for his for proton pump inhibitor, so he will take his bisoprolol-hydrochlorothiazide at 5-6.25 and we will put him on Nexium 40 mg daily. cc: Miguelito Crane MD
[2018-12-31 12:01] VITALS: BP 128/86
== END 2018-12-31 13:47 | disposition home or self-care (01) | DRG 439 ==
LOC: ED 22:35 → 3N 12-31 02:46 → SUATTDRO 12-31 02:46
PROVIDERS: ATTEND Emergency Medicine